=== PATIENT | female | born 1950 | race Caucasian/White ===

== ENCOUNTER 2019-06-17 11:59 | Day surgery (SDC) | payer MEDICARE, BC ==
[~2019-06-17] VITALS: Ht 157.5 cm; Wt 78.4 kg
[~2019-06-17 11:59] MED LIST: Bentyl10 MG PO; CALCIUM 500 +1 EAC2 PO; CENTRUM SILVER1 EAC2 PO; COROMEGA 3 + D2.5 GM PO; ESCI10 PO; Estradiol1 MG PO; FIBER GUMMIES1 EACH PO; FLAX PO; FURO40 PO; Flonase 0.05% N16 GM; LANS30EC PO; Naproxen500 MG PO; POTA10T PO; SYNTHROID150 MC1 PO; SYNTHROID150 MC2 PO; TRIPLE FLEX CA1 EACH PO; ZYRTEC10 M1 PO
== END 2019-06-17 15:05 | disposition home or self-care (01) ==
LOC: ORSCSDS 11:59
PROVIDERS: Internal Medicine Gastroenterology
PROC: 0D757ZZ Dilation of Esophagus, Via Natural or Artificial Opening (ICD-10-PCS; principal; 2019-06-17 13:30)
PROC: 0DB58ZX Excision of Esophagus, Via Natural or Artificial Opening Endoscopic, Diagnostic (ICD-10-PCS; principal; 2019-06-17 13:30)
PROC: 0DBK8ZX Excision of Ascending Colon, Via Natural or Artificial Opening Endoscopic, Diagnostic (ICD-10-PCS; principal; 2019-06-17 13:30)
DX: R13.10 Dysphagia, unspecified (principal); K21.9 Gastro-esophageal reflux disease without esophagitis; B37.81 Candidal esophagitis; K22.2 Esophageal obstruction; Z12.11 Encounter for screening for malignant neoplasm of colon; Z80.0 Family history of malignant neoplasm of digestive organs; D12.2 Benign neoplasm of ascending colon; E03.9 Hypothyroidism, unspecified; J45.909 Unspecified asthma, uncomplicated; Z79.899 Other long term (current) drug therapy
CPT/HCPCS: 88305; J2704; J7120

== ENCOUNTER → 2020-10-18 | Outpatient (CLI) | payer MEDICARE, BC | END | disposition home or self-care (01) | LOC: LAB SHORT 14:46 → LAB 14:46 | DX: D22.5 Melanocytic nevi of trunk (principal) | CPT/HCPCS: 88305 ==

== ENCOUNTER 2021-03-28 12:40 | Day surgery (SDC) | payer MEDICARE, BC ==
[~2021-03-28] VITALS: Ht 157.5 cm; Wt 74.3 kg
== END 2021-03-28 14:29 | disposition home or self-care (01) ==
LOC: ORSCSDS 12:40
PROVIDERS: Internal Medicine Gastroenterology
PROC: 0DB68ZX Excision of Stomach, Via Natural or Artificial Opening Endoscopic, Diagnostic (ICD-10-PCS; principal; 2021-03-28 14:45)
PROC: 0DJD8ZZ Inspection of Lower Intestinal Tract, Via Natural or Artificial Opening Endoscopic (ICD-10-PCS; principal; 2021-03-28 14:45)
DX: K92.1 Melena (principal); K31.7 Polyp of stomach and duodenum; D64.9 Anemia, unspecified; K64.4 Residual hemorrhoidal skin tags; K57.30 Diverticulosis of large intestine without perforation or abscess without bleeding; K29.70 Gastritis, unspecified, without bleeding; Z79.82 Long term (current) use of aspirin; Z79.899 Other long term (current) drug therapy
CPT/HCPCS: 88305; 88342; J0330; J0461; J2405; J2704; J7120